=== PATIENT | female | born 1955 | race Caucasian/White ===

== ENCOUNTER 2017-12-13 11:03 | Outpatient (CLI) | payer OTHER | END 2017-12-13 11:04 | disposition home or self-care (01) | LOC: BICMAMMO 11:03 | PROVIDERS: ATTEND Family Medicine | DX: Z12.31 Encounter for screening mammogram for malignant neoplasm of breast (principal); Z80.3 Family history of malignant neoplasm of breast | CPT/HCPCS: 77063; 77067 ==

== ENCOUNTER 2019-02-13 13:13 | Outpatient (CLI) | payer OTHER ==
--- NOTE | 2019-02-13 14:17 | MMO ---
Bilateral MAMMO Bilat Screen [facility]. CLINICAL HISTORY: Patient is 63 years old and is seen for screening. The patient has the following family history of breast cancer: sister, at age 50, AND 55. The patient has no personal history of cancer. The patient has a history of right Stereotatic Biopsy in January, - adenosis and fibrosis; focal mild ductal hyperplas and right Excisional Biopsy in 10/2000 - fibrocystic changes and duct ectasia; polarizable darren. VIEWS: The views performed were: bilateral mediolateral oblique with tomosynthesis; bilateral craniocaudal with tomosynthesis; left craniocaudal; and right mediolateral oblique. FILMS COMPARED: The present examination has been compared to prior imaging studies performed at [facility] on 11/20/2014, 11/28/2015, 12/07/2016 and 12/13/2017. This study has been interpreted with the assistance of computer-aided detection. MAMMOGRAM FINDINGS: There are scattered fibroglandular densities. There are benign appearing calcifications seen in both breasts. There are no suspicious masses, suspicious calcifications, or new areas of architectural distortion. IMPRESSION: THERE IS NO MAMMOGRAPHIC EVIDENCE OF MALIGNANCY. A ROUTINE FOLLOW-UP MAMMOGRAM IN 1 YEAR IS RECOMMENDED. THE RESULTS OF THIS EXAM WERE SENT TO THE PATIENT. ACR BI-RADS Category 2 - Benign finding MAMMOGRAPHY NOTE: 1. A negative mammogram report should not delay a biopsy if a dominant of clinically suspicious mass is present. 2. Approximately 10% to 15% of breast cancers are not detected by mammography. 3. Adenosis and dense breasts may obscure an underlying neoplasm. Reported by: SOPHIA RANDALL MD Electonically Signed: [id number]
== END 2019-02-13 13:14 | disposition home or self-care (01) ==
LOC: BICMAMMO 13:13
PROVIDERS: ATTEND Family Medicine
DX: Z12.31 Encounter for screening mammogram for malignant neoplasm of breast (principal); Z80.3 Family history of malignant neoplasm of breast
CPT/HCPCS: 77063; 77067

== ENCOUNTER 2019-05-11 19:52 | Emergency (ER) | payer OTHER ==
[2019-05-11] MEDS ORDERED: Acetaminophen 500 MG TAB ONE (22:32)
--- NOTE | 2019-05-11 23:27 | CT ---
NONCONTRAST CT HEAD 05/11/19 HISTORY: Trauma. Injury after a fall. COMPARISON: 10/04/13. FINDINGS: There is no evidence of a hemorrhage, acute infarction, mass effect, or midline shift. Ventricular sy stem is normal in size, shape and position. No calvarial fracture is seen. There has been interval right mastoidectomy when compared to the prior exam. The visualized paranasal sinuses are clear. IMPRESSION: No acute intracranial abnormality is demonstrated. POS: SHANTA
== END 2019-05-11 23:39 | disposition home or self-care (01) ==
LOC: ERS 19:52
DX: R51 Headache (principal); I10 Essential (primary) hypertension; E11.9 Type 2 diabetes mellitus without complications; E03.9 Hypothyroidism, unspecified; E78.5 Hyperlipidemia, unspecified; M06.9 Rheumatoid arthritis, unspecified; W18.30XA Fall on same level, unspecified, initial encounter; W22.8XXA Striking against or struck by other objects, initial encounter
CPT/HCPCS: 70450

== ENCOUNTER 2019-06-13 11:08 | Outpatient (CLI) | payer OTHER ==
--- NOTE | 2019-06-13 11:27 | RAD ---
XR Chest Pa Lat STANDARD HISTORY: Shortness of breath COMPARISON: None FINDINGS: The heart size is normal. The lungs are well expanded without focal areas of consolidation, pneumothorax or pleural effusions. IMPRESSION: No radiographic evidence of acute cardiopulmonary process.
== END 2019-06-13 11:09 | disposition home or self-care (01) ==
LOC: BICRAD 11:08
PROVIDERS: ATTEND Internal Medicine Cardiovascular Disease
DX: R06.02 Shortness of breath (principal)
CPT/HCPCS: 71046

== ENCOUNTER 2019-06-21 07:47 | Outpatient (CLI) | payer OTHER ==
[2019-06-21 08:28] LABS: Estimated GFR-MDRD - POC Greater than 90
--- NOTE | 2019-06-21 09:24 | CT ---
CT CHEST PERFORMED WITH IV CONTRAST ENHANCEMENT: Date: 06/21/2019 HISTORY: Shortness of breath upon exertion. FINDINGS: The lungs are clear of any infiltrative process. There are some minimal reticular changes in the lung bases, probably on the basis of some gravity-dependent atelectasis versus minimal scarring. There ar e no pulmonary nodules identified. No bronchiectatic change. No emphysematous lung changes appreciate d. The thoracic aorta is normal in caliber. There is no significant mediastinal, hilar, or axillary lymp hadenopathy. Diffuse fatty change of the liver is noted. Right and left adrenal glands are normal. IMPRESSION: 1. No acute findings to the chest. Some minimal reticular changes in the dependent portion of the yahir ng bases, probably basis of some minimal atelectasis. 2. Fatty change of the liver. POS: [facility]
[2019-06-21] MEDS ORDERED: Iopamidol-370 76% 500 ML 1 ML ONE (14:37)
== END 2019-06-21 07:48 | disposition home or self-care (01) ==
LOC: BICCT 07:47
PROVIDERS: ATTEND Internal Medicine Cardiovascular Disease
DX: R06.02 Shortness of breath (principal); K76.0 Fatty (change of) liver, not elsewhere classified
CPT/HCPCS: 71260; 82565; Q9967